=== PATIENT | male | born 1975 | race African-American/Black ===

== ENCOUNTER 2018-02-20 14:13 | Emergency (ER) | payer OTHER ==
[~2018-02-20] VITALS: Ht 177.8 cm; Wt 117.0 kg
[2018-02-20] MEDS ORDERED: HYDROCODONE-AP1 EAC6 PO (14:58)
[2018-02-20 15:20] VITALS: BP 143/78
== END 2018-02-20 15:20 | disposition home or self-care (01) ==
LOC: ER 14:13
DX: M79.641 Pain in right hand (principal); F17.210 Nicotine dependence, cigarettes, uncomplicated; V89.0XXA Person injured in unspecified motor-vehicle accident, nontraffic, initial encounter; Y93.89 Activity, other specified; Y92.89 Other specified places as the place of occurrence of the external cause; Y99.8 Other external cause status